=== PATIENT | male | born 1990 | race Hispanic/Latino ===

== ENCOUNTER 2016-08-30 19:57 | Observation (INO) | payer SELFPAY ==
[2016-08-30 20:07] VITALS: RESP 16
[2016-08-30] MEDS ORDERED: Sodium Chloride 0.9% 1,000 ML IV STA (20:35)
--- NOTE | 2016-08-30 20:40 | ED PDOC ---
HPI: Psych/Substance Abuse Time Seen by Provider: 08/30/16 20:27 Chief Complaint (Nursing): Substance Abuse Chief Complaint (Provider): Unknown inestion History Per: Patient, Other (police) Additional Complaint(s): The patient is a 25yo male, brought in by the police for evaluation s/p unknown ingestion. Patient admits to taking 2000mg of phenibut; denies suicidal ideation. Patient denies any past medical history and currently offers no additional medical complaints. Past Medical History Reviewed: Historical Data, Nursing Documentation, Vital Signs Vital Signs: Last Vital Signs Temp 97.6 F 08/30/16 20:03 Pulse 61 08/30/16 20:03 Resp 16 08/30/16 20:03 BP 125/79 08/30/16 20:03 Pulse Ox 97 08/30/16 20:03 - Medical History PMH: No Chronic Diseases - Surgical History Surgical History: No Surg Hx - Family History Family History: States: Unknown Family Hx - Home Medications Home Medications: Ambulatory Orders Medication Instructions Recorded Unobtainable 08/30/16 - Allergies Allergies/Adverse Reactions: Allergies Allergy/AdvReac Type Severity Reaction Status Date / Time No Known Allergies Allergy Verified 08/30/16 20:06 Review of Systems ROS Statement: Except As Marked, All Systems Reviewed And Found Negative Psych: Positive for: Other (ingestion of unknown substance) Physical Exam - Reviewed Nursing Documentation Reviewed: Yes Vital Signs Reviewed: Yes - Physical Exam Appears: Positive for: Well, No Acute Distress Head Exam: Positive for: ATRAUMATIC, NORMAL INSPECTION, NORMOCEPHALIC Skin: Positive for: Normal Color, Warm, DRY Eye Exam: Positive for: EOMI, PERRL (2mm bilaterally) Neck: Positive for: Normal, Supple Cardiovascular/Chest: Positive for: Regular Rate, Rhythm Respiratory: Positive for: Normal Breath Sounds. Negative for: Respiratory Distress Gastrointestinal/Abdominal: Positive for: Normal Exam, Soft. Negative for: Tenderness Back: Positive for: Normal Inspection. Negative for: Vertebral Tenderness Extremity: Positive for: Normal ROM, Other (abrasion noted to left forearm, full rom.; motor senses 4/4 bilateral ). Negative for: Deformity Neurologic/Psych: Positive for: Other (lethargic, difficult to arouse; patient responds to painful stimuli). Negative for: Motor/Sensory Deficits - Laboratory Results Result Diagrams: 08/30/16 20:49 08/30/16 20:49 - ECG O2 Sat by Pulse Oximetry: 97 Medical Decision Making Medical Decision Making: Time: 2039 Impression: Ingestion Plan: -- Labs -- IV Fluids -- Chest x-ray Reassess Scribe Attestation: Documented by Cyndi Kessler acting as a scribe for Iftikhar Ramos MD. Provider Attestation: All medical record entries made by the Scribe were at my direction and personally dictated by me. I have reviewed the chart and agree that the record accurately reflects my personal performance of the history, physical exam, medical decision making, and the department course for this patient. I have also personally directed, reviewed, and agree with the discharge instructions and disposition. ED OBSERVATION Date of observation admission: 08/30/16 Time of observation admission: 21:11 Disposition - Clinical Impression Clinical Impression: Drug ingestion - Patient ED Disposition Is Patient to be Admitted: Transfer of Care - Disposition Disposition: Transfer of Care Disposition Time: 00:10 Condition: FAIR Patient Signed Over To: Billy Lynn
[2016-08-30 21:07] LABS: BASO % 0.6 % (0.0-2.0); EOS # 0.2 K/uL (0.0-0.7); EOS % 2.4 % (0.0-4.0); HEMOGLOBIN 14.4 g/dL (12.0-18.0); MEAN CELL VOLUME 88.4 fl (80.0-94.0); MEAN CORPUSCULAR HEMOGLOBIN 29.2 pg (27.0-31.0); MEAN PLATELET VOLUME 8.4 fl (7.2-11.7); MONO # 0.8 K/uL (0.0-0.8); MONO % 10.2 % (0.0-10.0); NEUT # 4.9 K/uL (1.8-7.0); NEUT % 61.8 % (50.0-75.0); RBC 4.94 Mil/uL (4.40-5.90); RED CELL DISTRIBUTION WIDTH 15.3 % (11.5-14.5); WHITE BLOOD COUNT 7.8 K/uL (4.8-10.8)
[2016-08-30 21:17] LABS: PROTHROMBIN TIME 11.6 Seconds (9.8-13.1)
[2016-08-30 21:28] LABS: ALB/GLOB RATIO 1.3 (1.0-2.1); ALBUMIN 4.1 g/dL (3.5-5.0); ALT/SGPT 32 U/L (21-72); AST/SGOT 24 U/L (17-59); BLOOD UREA NITROGEN 21 mg/dl (9-20); CALCIUM 9.2 mg/dL (8.4-10.2); GFR AFRICAN-AMERICAN > 60; GFR NON-AFRICAN AMERICAN > 60; SALICYLATE < 1.0 mg/dl
[2016-08-30 21:29] LABS: ACETAMINOPHEN < 10.0 ug/ml (10.0-30.0)
--- NOTE | 2016-08-31 00:47 | ED PDOC ---
- Laboratory Results Result Diagrams: 08/30/16 20:49 08/30/16 20:49 - ECG O2 Sat by Pulse Oximetry: 97 Medical Decision Making Medical Decision Makin Receiving sign out: Patient signed out to me by Dr. Ramos pending sobriety. * Patient in ED OBS All further documentation will take place in ED OBS note Scribe Attestation: Documented by Joan Herrera acting as a scribe for Billy Lynn MD. Provider Attestation: All medical record entries made by the Scribe were at my direction and personally dictated by me. I have reviewed the chart and agree that the record accurately reflects my personal performance of the history, physical exam, medical decision making, and the department course for this patient. I have also personally directed, reviewed, and agree with the discharge instructions and disposition. Disposition - Clinical Impression Clinical Impression: Drug ingestion - POA Present On Arrival: None - Disposition Disposition: Routine/Home Disposition Time: 01:30 Condition: FAIR ED OBSERVATION Date of observation admission: 08/30/16 Time of observation admission: 21:10 - Observation admission statement Patient is being placed in observation because:: intoxication - Goals of Observation Goals of observation are:: pending clinical sobriety and final disposition - Progress Note Progress Note: 08/31/16 00:00 Patient resting comfortably. Vitals stable. 08/31/16 00:43 Patient is awake, alert, and walking around. Discharge pending UDrug. 08/31/16 130 Drug screen + for multiple drugs. Pt. awake and alert,w ill d/c home. Warned of dangers of drug abuse.
[2016-08-31 01:33] LABS: BARBITURATES, UR NEGATIVE (NEGATIVE); BENZODIAZEPINES, UR POSITIVE (NEGATIVE); OPIATES, UR POSITIVE (NEGATIVE); PHENCYCLIDINE, UR NEGATIVE (NEGATIVE)
[2016-08-31 01:45] VITALS: BP 135/80; PULSE 75; TEMP 97.8
[2016-08-31 03:45] VITALS: O2SAT 97
--- NOTE | 2016-08-31 10:07 | CARD ---
APPROVED REPORT EKG Measurement Heart [id number] IN [id number] [id number] <Conclusion> Sinus bradycardia Otherwise normal ECG
--- NOTE | 2016-08-31 14:07 | RAD ---
HISTORY: cough COMPARISON: None available. TECHNIQUE: Chest, one view. FINDINGS: LUNGS: No focal consolidation. Please note that chest x-ray has limited sensitivity for the detection of pulmonary masses. PLEURA: No significant pleural effusion identified. No definite pneumothorax . CARDIOVASCULAR: The cardiomediastinal silhouette appears within normal limits of size. OSSEOUS STRUCTURES: No acute osseous abnormality identified. VISUALIZED UPPER ABDOMEN: Unremarkable. OTHER FINDINGS: None. IMPRESSION: No focal consolidation, significant pleural effusion, or definite pneumothorax identified.
== END 2016-08-31 06:35 | disposition home or self-care (01) ==
LOC: H.ER 19:57 → H.EROBSV 21:11
PROVIDERS: ADMIT Emergency Medicine; ATTEND Emergency Medicine
DX: T50.995A Adverse effect of other drugs, medicaments and biological substances, initial encounter (principal)
CPT/HCPCS: 71010; 80053; 85025; 85610; 93005; G0378; G0480; J7040

== ENCOUNTER 2017-01-13 10:33 | Emergency (ER) | payer OTHER ==
[2017-01-13 10:35] VITALS: BMI 27.1
[2017-01-13 10:42] VITALS: O2SAT 98
[2017-01-13] MEDS ORDERED: Sodium Chloride 0.9% 1,000 ML IV STA (11:03)
--- NOTE | 2017-01-13 11:20 | ED PDOC ---
HPI: General Adult Time Seen by Provider: 01/13/17 10:48 Chief Complaint (Nursing): Alcohol Ingestion Chief Complaint (Provider): Tremors History Per: Patient History/Exam Limitations: no limitations Onset/Duration Of Symptoms: Days (toda) Current Symptoms Are (Timing): Gone Now Additional Complaint(s): Pt. was at the store and felt light-headed and tremors in hands and feet so EMS called. States he gets seizures so thought it might be coming. Takes klonazapam for it. Last 2 days ago. Unclear if he fell and had a full seizure. States no nasuea, vomit, diarrhea, weakness, drugs, etoh, abd pain, chest pain, dyspnea, headaches. No neck pain. Past Medical History Reviewed: Nursing Documentation, Vital Signs Vital Signs: Last Vital Signs Temp 97.5 F L 01/13/17 10:35 Pulse 106 H 01/13/17 10:35 Resp 17 01/13/17 10:35 BP 125/81 01/13/17 10:35 Pulse Ox 98 01/13/17 11:21 - Medical History PMH: Seizures - Surgical History Surgical History: No Surg Hx - Family History Family History: States: Unknown Family Hx - Social History Current smoker - smoking cessation education provided: No Alcohol: None Drugs: Opiates (hx) - Home Medications Home Medications: Ambulatory Orders Medication Instructions Recorded Unobtainable 08/30/16 - Allergies Allergies/Adverse Reactions: Allergies Allergy/AdvReac Type Severity Reaction Status Date / Time No Known Allergies Allergy Verified 01/13/17 10:40 Review of Systems ROS Statement: Except As Marked, All Systems Reviewed And Found Negative Neurological: Positive for: Seizures (?), Dizziness Physical Exam - Reviewed Nursing Documentation Reviewed: Yes Vital Signs Reviewed: Yes - Physical Exam Appears: Positive for: Non-toxic, No Acute Distress Head Exam: Positive for: ATRAUMATIC, NORMAL INSPECTION, NORMOCEPHALIC Skin: Positive for: Normal Color, Warm, DRY Eye Exam: Positive for: EOMI, Normal appearance, PERRL ENT: Positive for: Normal ENT Inspection Neck: Positive for: Normal, Painless ROM Cardiovascular/Chest: Positive for: Regular Rate, Rhythm Respiratory: Positive for: CNT, Normal Breath Sounds Gastrointestinal/Abdominal: Positive for: Normal Exam, Bowel Sounds, Soft. Negative for: Tenderness Back: Positive for: Normal Inspection. Negative for: L CVA Tenderness, R CVA Tenderness Extremity: Positive for: Normal ROM. 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 Negative for: Motor/Sensory Deficits - Laboratory Results Result Diagrams: 01/13/17 11:33 01/13/17 11:33 Interpretation Of Abn Labs: 23 bun - ECG ECG: Positive for: Interpreted By Me, Viewed By Me ECG Rhythm: Positive for: Normal QRS, Normal ST Segment, Sinus Rhythm O2 Sat by Pulse Oximetry: 98 Pulse Ox Interpretation: Normal - CT Scan/US head Other Rad Studies (CT/US): Read By Radiologist Other Rad Interpretation: no acute - Progress ED Course And Treament: 1423: Stable. AAOx3. Pain free. Resting. Pending UDS. Dr. Urbina to take over care and fu on urine drug screen. Disposition - Clinical Impression Clinical Impression: History of seizure - Patient ED Disposition Is Patient to be Admitted: Transfer of Care - Disposition Disposition: Transfer of Care Disposition Time: 14:26 Condition: STABLE Patient Signed Over To: Mary Urbina
[2017-01-13 11:45] LABS: BASO % 0.7 % (0.0-2.0); EOS # 0.1 K/uL (0.0-0.7); EOS % 1.2 % (0.0-4.0); HEMATOCRIT 39.9 % (35.0-51.0); LYMPH # 2.7 K/uL (1.0-4.3); LYMPH % 34.8 % (20.0-40.0); MEAN CELL VOLUME 91.8 fl (80.0-94.0); MEAN CORPUSCULAR HEMOGLOBIN 31.1 pg (27.0-31.0); MEAN CORPUSCULAR HGB CONC 33.8 g/dL (33.0-37.0); MEAN PLATELET VOLUME 7.7 fl (7.2-11.7); MONO # 0.6 K/uL (0.0-0.8); NEUT # 4.2 K/uL (1.8-7.0); NEUT % 55.3 % (50.0-75.0); WHITE BLOOD COUNT 7.6 K/uL (4.8-10.8)
[2017-01-13 11:48] LABS: ALB/GLOB RATIO 1.4 (1.0-2.1); ALCOHOL SERUM < 10 mg/dl (0-10); ALKALINE PHOSPHATASE 65 U/L (38-126); ALT/SGPT 38 U/L (21-72); AST/SGOT 26 U/L (17-59); BILIRUBIN,TOTAL 0.5 mg/dl (0.2-1.3); BLOOD UREA NITROGEN 23 mg/dl (9-20); CALCIUM 9.1 mg/dL (8.4-10.2); CARBON DIOXIDE 26 mmol/L (22-30); CHLORIDE 105 mmol/L (98-107); GFR AFRICAN-AMERICAN > 60; GLUCOSE,RANDOM 97 mg/dL (75-110); SODIUM 143 mmol/l (132-148); TOTAL PROTEIN 7.6 G/DL (6.3-8.2)
--- NOTE | 2017-01-13 13:42 | CT ---
PROCEDURE: CT HEAD WITHOUT CONTRAST. HISTORY: headache COMPARISON: None available. TECHNIQUE: Axial computed tomography images were obtained through the head/brain without intravenous contrast. Radiation dose: Total exam DLP = 1265.96 MGy-cm. This CT exam was performed using one or more of the following dose reduction techniques: Automated exposure control, adjustment of the mA and/or kV according to patient size, and/or use of iterative reconstruction technique. FINDINGS: HEMORRHAGE: No intracranial hemorrhage. BRAIN: Normal munoz-white matter differentiation and density are appreciated throughout the cerebrum and cerebellum with the brainstem appearing unremarkable as well. There is no mass effect. There is no suspicious extra-axial fluid collection and the midline brain anatomy appears diffusely unremarkable. VENTRICLES: Unremarkable. No hydrocephalus. CALVARIUM: Unremarkable. PARANASAL SINUSES: Unremarkable as visualized. No significant inflammatory changes. MASTOID AIR CELLS: Unremarkable as visualized. No inflammatory changes. OTHER FINDINGS: None. IMPRESSION: Unremarkable unenhanced head CT.
--- NOTE | 2017-01-13 15:31 | ED PDOC ---
- Laboratory Results Result Diagrams: 01/13/17 11:33 01/13/17 11:33 - ECG O2 Sat by Pulse Oximetry: 98 (RA) Pulse Ox Interpretation: Normal Medical Decision Making Medical Decision Making: Time: 15:00 Patient is endorsed to me by Dr. Jeremy Narayanan, pending UDS results and clinical sobriety. 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 Findings noted as follows: FINDINGS: HEMORRHAGE: No intracranial hemorrhage. BRAIN: Normal munoz-white matter differentiation and density are appreciated throughout the cerebrum and cerebellum with the brainstem appearing unremarkable as well. There is no mass effect. There is no suspicious extra-axial fluid collection and the midline brain anatomy appears diffusely unremarkable. VENTRICLES: Unremarkable. No hydrocephalus. CALVARIUM: Unremarkable. PARANASAL SINUSES: Unremarkable as visualized. No significant inflammatory changes. MASTOID AIR CELLS: Unremarkable as visualized. No inflammatory changes. OTHER FINDINGS: None. IMPRESSION: Unremarkable unenhanced head CT. Scribe Attestation: Documented by Jennie Banks and Migdalia Mason, acting as scribes for Mary Urbina MD Provider Scribe Attestation: All medical record entries made by the Scribe were at my direction and personally dictated by me. I have reviewed the chart and agree that the record accurately reflects my personal performance of the history, physical exam, medical decision making, and the department course for this patient. I have also personally directed, reviewed, and agree with the discharge instructions and disposition. Disposition - Clinical Impression Clinical Impression: Polysubstance abuse - Disposition Condition: IMPROVED Additional Instructions: follow up with your primary doctor return to the ED with any worsening or concerning symptoms patient is medically and psychiatrically cleared for incarceration Instructions: Polysubstance Abuse (ED) Forms: [employer] ([place])
[2017-01-13 20:07] VITALS: BP 113/57; PULSE 85; RESP 18; TEMP 98.2
--- NOTE | 2017-01-14 08:54 | CARD ---
APPROVED REPORT EKG Measurement Heart [id number] IA 134P15 [id number] <Conclusion> Normal sinus rhythm Normal ECG
== END 2017-01-13 21:30 ==
LOC: H.ER 10:33
DX: F19.10 Other psychoactive substance abuse, uncomplicated (principal); Z86.69 Personal history of other diseases of the nervous system and sense organs
CPT/HCPCS: 70450; 80053; 80320; 80324; 80345; 80346; 80349; 80353; 80358; 80361; 83992; 84484; 85025; 93005; 96360; 99282; J7040

== ENCOUNTER 2017-02-20 06:48 | Emergency (ER) | payer OTHER ==
[2017-02-20 06:48] VITALS: BMI 27.1
[2017-02-20 07:00] VITALS: BP 158/73; PULSE 58; RESP 16; TEMP 97.5; O2SAT 100
--- NOTE | 2017-02-20 08:30 | ED PDOC ---
HPI: General Adult Time Seen by Provider: 02/20/17 07:11 Chief Complaint (Nursing): Medical Clearance Chief Complaint (Provider): Medical Clearance History Per: Patient History/Exam Limitations: no limitations Additional Complaint(s): 26y/o male is presented to the ED by EMS for clearance for incarceration. Patient has a past medical history of panic attacks and epilepsy. Patient notes that he has not been taking his Klonopin since 2 days and has been experiencing withdrawal symptoms including seizures. Patient states that he has chest pain x 2 days (sharp and constant pain) and anxiety. Denies fever, chills or any further medical complaints. Past Medical History Reviewed: Historical Data, Nursing Documentation, Vital Signs Vital Signs: Last Vital Signs Temp 97.5 F L 02/20/17 06:54 Pulse 58 L 02/20/17 06:54 Resp 16 02/20/17 06:54 BP 158/73 H 02/20/17 06:54 Pulse Ox 100 02/20/17 08:34 - Medical History PMH: Seizures - Family History Family History: States: Unknown Family Hx - Social History Current smoker - smoking cessation education provided: No (Current smoking status unknown) Alcohol: None Drugs: Other (Yes) - Home Medications Home Medications: Ambulatory Orders Medication Instructions Recorded Unobtainable 08/30/16 No Known Home Med 01/12/17 - Allergies Allergies/Adverse Reactions: Allergies Allergy/AdvReac Type Severity Reaction Status Date / Time No Known Allergies Allergy Verified 01/13/17 10:40 Review of Systems ROS Statement: Except As Marked, All Systems Reviewed And Found Negative (As per HPI, otherwise negative) Constitutional: Negative for: Fever, Chills Cardiovascular: Positive for: Chest Pain Neurological: Positive for: Seizures (when medication is not taken patient experiences seizures) Psych: Positive for: Anxiety Physical Exam - Reviewed Nursing Documentation Reviewed: Yes Vital Signs Reviewed: Yes - Physical Exam Appears: Positive for: Well, Non-toxic, No Acute Distress Head Exam: Positive for: ATRAUMATIC, NORMAL INSPECTION, NORMOCEPHALIC Skin: Positive for: Normal Color, Warm, Dry Eye Exam: Positive for: Normal appearance, PERRL (Sluggish pupil) ENT: Positive for: Normal ENT Inspection Neck: Positive for: Normal, Painless ROM, Supple Cardiovascular/Chest: Positive for: Regular Rate, Rhythm. Negative for: Murmur Respiratory: Positive for: Normal Breath Sounds. Negative for: Accessory Muscle Use, Respiratory Distress Gastrointestinal/Abdominal: Positive for: Normal Exam, Bowel Sounds, Soft. Negative for: Tenderness Back: Positive for: Normal Inspection Extremity: Positive for: Normal ROM. Negative for: Deformity Neurologic/Psych: Positive for: Alert, Oriented (x3) - ECG O2 Sat by Pulse Oximetry: 100 (RA) Pulse Ox Interpretation: Normal Medical Decision Making Medical Decision Making: Time: 08:04 Plan: Crisis Evaluation Levetiracetam 1000mg PO Scribe Attestation: Documented by Christos Boggs acting as a scribe for Karolina Hayes MD. Scribe Attestation: All medical record entries made by the Scribe were at my direction and personally dictated by me. I have reviewed the chart and agree that the record accurately reflects my personal performance of the history, physical exam, medical decision making, and the department course for this patient. I have also personally directed, reviewed, and agree with the discharge instructions and disposition. 10.30a - patient stable since arrival. seen by crisis and cleared by Dr. Zabala. Disposition - Clinical Impression Clinical Impression: Polysubstance abuse - Patient ED Disposition Is Patient to be Admitted: No Doctor Will See Patient In The: Office Counseled Patient/Family Regarding: Diagnosis, Need For Followup - Disposition Disposition: Routine/Home Disposition Time: 10:00 Condition: STABLE Additional Instructions: Patient is medical and psychiatrically stable for incarceration. Instructions: Polysubstance Abuse (ED), Epilepsy (ED) Forms: [employer] ([place]ian) - POA Present On Arrival: None
== END 2017-02-20 12:04 | disposition home or self-care (01) ==
LOC: H.ER 06:48
DX: G40.909 Epilepsy, unspecified, not intractable, without status epilepticus; F41.9 Anxiety disorder, unspecified